=== PATIENT | male | born 1940 | race African-American/Black ===

== ENCOUNTER 2016-06-03 22:49 | Emergency (ER) | payer MEDICARE, OTHER ==
[2016-06-04] MEDS ORDERED: IBUPROFEN 600 MG TAB As Ordered ONE (00:42)
[2016-06-04] MEDS ORDERED: AUGMENTIN 875 MG TAB As Ordered ONE (00:42)
--- NOTE | 2016-06-04 00:47 | EDDOCDS ---
Nurse's Notes [facility] Name: Fernando Live Age: 75 yrs Sex: Male : 1940 Arrival Date: 06/03/2016 Time: 22:49 Bed Triage 2 Private MD: [facility] Diagnosis: Acute sinusitis Presentation: 06/03 22:52 Presenting complaint: Patient states: sore throat, sinus pain and headache for 3 days. rs3 Adult Sepsis Screening: The patient does not have new or worsening altered mentation. Patient's respiratory rate is less than 22. Systolic blood pressure is greater than 100. Patient has a qSOFA score of 0- Negative Sepsis Screen. Suicide/Homicide risk assessment- the patient denies having any suicidal and/or homicidal ideations and does not present with any other emotional, behavioral or mental health complaints. Status: retired. Transition of care: patient was not received from another setting of care. 22:52 Acuity: DMITRY Level 4 rs3 22:52 Method Of Arrival: Walkin/Carried/Asstd rs3 Triage Assessment: 22:54 General: Appears in no apparent distress. Pain: Location: forehead, right cheek and rs3 left cheek. Historical: - Allergies: no known allergies; - Home Meds: 1. Vitamin B-12 1,000 mcg Oral lozg daily 2. Fish Oil 1,000 mg Oral cap daily 3. aspirin 81 mg Oral tab 1 tab once daily 4. fluticasone 50 mcg/actuation nasal spsn 1 spray once daily - PMHx: none; - PSHx: Prostatectomy; - Social history: Smoking status: Patient states former smoker of tobacco. No barriers to communication noted, The patient speaks fluent Gabonese. - Family history: No immediate family members are acutely ill. - : The pt / caregiver states he / she is not on anticoagulants. Home medication list is obtained from the patient. - Exposure Risk Screening:: None identified. Screenin/02 00:44 Screening information is obtained from the patient. Fall risk: No risks identified. kmg1 Assistance ADL's: requires no assistance with activities of daily living. Abuse/DV Screen: The patient / caregiver reports he/she is: not in a situation that causes fear, pain or injury. Nutritional screening: No deficits noted. Advance Directives: There is no active DNR order. home support is adequate. Assessment: 00:44 General: Appears in no apparent distress, comfortable, Behavior is appropriate for age, kmg1 cooperative, pleasant. Pain: Location: forehead Pain currently is 6 out of 10 on a pain scale. Quality of pain is described as aching. Neurological: Level of Consciousness is awake, alert. Respiratory: Airway is patent Respiratory effort is even, unlabored, Respiratory pattern is regular, symmetrical. Vital Signs: 06/03 22:50 BP 184 / 80; Pulse 80; Resp 18; Temp 97.7; Pulse Ox 99% ; Weight 77.11 kg; Height 67 elp in. (170.18 cm); Pain 6/10; 06/04 00:21 BP 150 / 86; cjh 06/03 22:50 Body Mass Index 26.63 (77.11 kg, 170.18 cm) elp Vitals: 06/03 22:50 Log In Time: June 03, 2016 at 22:48. elp ED Course: 22:49 Patient visited by Mariluz Dickens PCA. elp 22:49 Patient moved to Waiting elp 22:50 [facility] is Private Physician. elp 22:50 Patient visited by Mariluz Dickens PCA. elp 22:50 Patient moved to Pre RCE elp 22:52 Triage Initiated rs3 23:55 Patient moved to Triage 2 kmg1 06/04 00:25 [facility] ck7 00:25 Darryn Lynn DO is Attending Physician. ck7 00:25 Patient visited by Jonah Hernandez RPA-C. ck7 00:30 [facility] is Referral Physician. ck7 00:44 The patient / caregiver is instructed regarding the plan of care and ED course. kmg1 00:44 No IV's were initiated during this patient's visit. No procedures done that require kmg1 assistance. Order Results: There are currently no results for this order. Outcome: 00:30 Discharge ordered by Provider. ck7 00:44 Discharge Assessment: Patient awake, alert and oriented x 3. No cognitive and/or kmg1 functional deficits noted. Patient verbalized understanding of disposition instructions. Patient awake and alert. patient administered narcotics - no. The following High Risk Discharge criteria are identified: None. Condition: stable. Discharge instructions given to patient, Instructed on discharge instructions, follow up and referral plans. medication usage, Demonstrated understanding of instructions, medications, Pt was receptive of discharge instructions/ teaching. Prescriptions given X 2. No special radiology studies were completed. Property sent home with patient. 00:46 Patient left the ED. kmg1 Signatures: Lanny Sánchez, RN RN kmg1 Jaja SternRN RN rs3 Magali DesouzaRN RN [facility] Jonah Hernandez, RPA-C RPA-Cck7 Mariluz Dickens, SAM OXYGRAPH OPERATOR elp MTDD
--- NOTE | 2016-06-04 00:47 | EDDOCDS ---
Physician Documentation [facility] Name: Fernando Live Age: 75 yrs Sex: Male : 1940 Arrival Date: 06/03/2016 Time: 22:49 Bed Triage 2 Private MD: [facility] Disposition: 06/04/16 00:30 Discharged to Home/Self Care. Impression: Acute sinusitis. - Condition is Stable. - Discharge Instructions: Sinusitis, Adult. - Prescriptions for Augmentin 875- 125 mg Oral Tablet - take 1 tablet by ORAL route every 12 hours for 10 days; 20 tablet. Ibuprofen 600 mg Oral Tablet - take 1 tablet by ORAL route every 6 hours As needed take with food; 30 tablet. - Medication Reconciliation, Local Pharmacy Hours form. - Follow up: [facility]; When: 2 - 3 days; Reason: Recheck today's complaints, Continuance of care. - Problem is new. - Symptoms have improved. Historical: - Allergies: no known allergies; - Home Meds: 1. Vitamin B-12 1,000 mcg Oral lozg daily 2. Fish Oil 1,000 mg Oral cap daily 3. aspirin 81 mg Oral tab 1 tab once daily 4. fluticasone 50 mcg/actuation nasal spsn 1 spray once daily - PMHx: none; - PSHx: Prostatectomy; - Social history: Smoking status: Patient states former smoker of tobacco. No barriers to communication noted, The patient speaks fluent Kiswahili. - Family history: No immediate family members are acutely ill. - : The pt / caregiver states he / she is not on anticoagulants. Home medication list is obtained from the patient. - Exposure Risk Screening:: None identified. Vital Signs: 06/03 22:50 BP 184 / 80; Pulse 80; Resp 18; Temp 97.7; Pulse Ox 99% ; Weight 77.11 kg / 170 lbs; elp Height 67 in. (170.18 cm); Pain 6/10; 06/04 00:21 BP 150 / 86; cjh 06/03 22:50 Body Mass Index 26.63 (77.11 kg, 170.18 cm) elp MDM: 00:15 Recheck B/P ordered. ck7 00:29 Ibuprofen 600 mg PO once ordered. ck7 00:29 Amoxicillin-Clavulanate 875 mg 1 tabs PO once ordered. ck7 Signatures: Lanny Sánchez, RN RN kmg1 Jaja Stern RN RN rs3 Jonah Hernandez, [place] RPA-Cck7 MTDD
--- NOTE | 2016-06-06 01:47 | EDDOCDS ---
Nurse's Notes [facility] Name: Fernando Live Age: 75 yrs Sex: Male : 1940 Arrival Date: 06/03/2016 Time: 22:49 Bed Triage 2 Private MD: [facility] Diagnosis: Acute sinusitis Presentation: 06/03 22:52 Presenting complaint: Patient states: sore throat, sinus pain and headache for 3 days. rs3 Adult Sepsis Screening: The patient does not have new or worsening altered mentation. Patient's respiratory rate is less than 22. Systolic blood pressure is greater than 100. Patient has a qSOFA score of 0- Negative Sepsis Screen. Suicide/Homicide risk assessment- the patient denies having any suicidal and/or homicidal ideations and does not present with any other emotional, behavioral or mental health complaints. Status: retired. Transition of care: patient was not received from another setting of care. 22:52 Acuity: DMITRY Level 4 rs3 22:52 Method Of Arrival: Walkin/Carried/Asstd rs3 Triage Assessment: 22:54 General: Appears in no apparent distress. Pain: Location: forehead, right cheek and rs3 left cheek. Historical: - Allergies: no known allergies; - Home Meds: 1. Vitamin B-12 1,000 mcg Oral lozg daily 2. Fish Oil 1,000 mg Oral cap daily 3. aspirin 81 mg Oral tab 1 tab once daily 4. fluticasone 50 mcg/actuation nasal spsn 1 spray once daily - PMHx: none; - PSHx: Prostatectomy; - Social history: Smoking status: Patient states former smoker of tobacco. No barriers to communication noted, The patient speaks fluent Wallisian. - Family history: No immediate family members are acutely ill. - : The pt / caregiver states he / she is not on anticoagulants. Home medication list is obtained from the patient. - Exposure Risk Screening:: None identified. Screenin/02 00:44 Screening information is obtained from the patient. Fall risk: No risks identified. kmg1 Assistance ADL's: requires no assistance with activities of daily living. Abuse/DV Screen: The patient / caregiver reports he/she is: not in a situation that causes fear, pain or injury. Nutritional screening: No deficits noted. Advance Directives: There is no active DNR order. home support is adequate. Assessment: 00:44 General: Appears in no apparent distress, comfortable, Behavior is appropriate for age, kmg1 cooperative, pleasant. Pain: Location: forehead Pain currently is 6 out of 10 on a pain scale. Quality of pain is described as aching. Neurological: Level of Consciousness is awake, alert. Respiratory: Airway is patent Respiratory effort is even, unlabored, Respiratory pattern is regular, symmetrical. Vital Signs: 06/03 22:50 BP 184 / 80; Pulse 80; Resp 18; Temp 97.7; Pulse Ox 99% ; Weight 77.11 kg; Height 67 elp in. (170.18 cm); Pain 6/10; 06/04 00:21 BP 150 / 86; cjh 06/03 22:50 Body Mass Index 26.63 (77.11 kg, 170.18 cm) elp Vitals: 06/03 22:50 Log In Time: June 03, 2016 at 22:48. elp ED Course: 22:49 Patient visited by Mariluz Dickens PCA. elp 22:49 Patient moved to Waiting elp 22:50 [facility] is Private Physician. elp 22:50 Patient visited by Mariluz Dickens PCA. elp 22:50 Patient moved to Pre RCE elp 22:52 Triage Initiated rs3 23:55 Patient moved to Triage 2 kmg1 06/04 00:25 [facility] ck7 00:25 Darryn Lynn DO is Attending Physician. ck7 00:25 Patient visited by Jonah Hernandez RPA-C. ck7 00:30 [facility] is Referral Physician. ck7 00:44 The patient / caregiver is instructed regarding the plan of care and ED course. kmg1 00:44 No IV's were initiated during this patient's visit. No procedures done that require [facility] assistance. 00:50 [place] Payment Agreement was scanned into [employer] and attached to record. lja 05:01 T-Sheet-- Draft Copy was scanned into [employer] and attached to record. hs2 Order Results: There are currently no results for this order. Outcome: 00:30 Discharge ordered by Provider. ck7 00:44 Discharge Assessment: Patient awake, alert and oriented x 3. No cognitive and/or kmg1 functional deficits noted. Patient verbalized understanding of disposition instructions. Patient awake and alert. patient administered narcotics - no. The following High Risk Discharge criteria are identified: None. Condition: stable. Discharge instructions given to patient, Instructed on discharge instructions, follow up and referral plans. medication usage, Demonstrated understanding of instructions, medications, Pt was receptive of discharge instructions/ teaching. Prescriptions given X 2. No special radiology studies were completed. Property sent home with patient. 00:46 Patient left the ED. [facility] Signatures: Lanny Sánchez, RN RN kmg1 Jaja Stern,RN RN rs3 Magali Desouza,RN RN [facility] Jonah Hernandez, RPA-C RPA-Cck7 Mariluz Dickens, CHIEF OF PRODUCTION CHIEF OF PRODUCTION elp Arlene, Laureen Lamar, Reg Reg hs2 Chart Complete MTDCherise
--- NOTE | 2016-06-06 01:47 | EDDOCDS ---
Physician Documentation [facility] Name: Fernando Live Age: 75 yrs Sex: Male : 1940 Arrival Date: 06/03/2016 Time: 22:49 Bed Triage 2 Private MD: [facility] Disposition: 06/04/16 00:30 Discharged to Home/Self Care. Impression: Acute sinusitis. - Condition is Stable. - Discharge Instructions: Sinusitis, Adult. - Prescriptions for Augmentin 875- 125 mg Oral Tablet - take 1 tablet by ORAL route every 12 hours for 10 days; 20 tablet. Ibuprofen 600 mg Oral Tablet - take 1 tablet by ORAL route every 6 hours As needed take with food; 30 tablet. - Medication Reconciliation, Local Pharmacy Hours form. - Follow up: [facility]; When: 2 - 3 days; Reason: Recheck today's complaints, Continuance of care. - Problem is new. - Symptoms have improved. Historical: - Allergies: no known allergies; - Home Meds: 1. Vitamin B-12 1,000 mcg Oral lozg daily 2. Fish Oil 1,000 mg Oral cap daily 3. aspirin 81 mg Oral tab 1 tab once daily 4. fluticasone 50 mcg/actuation nasal spsn 1 spray once daily - PMHx: none; - PSHx: Prostatectomy; - Social history: Smoking status: Patient states former smoker of tobacco. No barriers to communication noted, The patient speaks fluent Setswana. - Family history: No immediate family members are acutely ill. - : The pt / caregiver states he / she is not on anticoagulants. Home medication list is obtained from the patient. - Exposure Risk Screening:: None identified. Vital Signs: 06/03 22:50 BP 184 / 80; Pulse 80; Resp 18; Temp 97.7; Pulse Ox 99% ; Weight 77.11 kg / 170 lbs; elp Height 67 in. (170.18 cm); Pain 6/10; 06/04 00:21 BP 150 / 86; cjh 06/03 22:50 Body Mass Index 26.63 (77.11 kg, 170.18 cm) elp MDM: 00:15 Recheck B/P ordered. ck7 00:29 Ibuprofen 600 mg PO once ordered. ck7 00:29 Amoxicillin-Clavulanate 875 mg 1 tabs PO once ordered. ck7 00:50 [place] Payment Agreement was scanned into [employer] and attached to record. 00:50 Financial registration complete. 05:01 T-Sheet-- Draft Copy was scanned into [employer] and attached to record. hs2 Signatures: Lanny Sánchez, RN RN kmg1 Jaja SternRN RN rs3 Jonah Hernandez, RPA-C RPA-Cck7 Arel, Laureen Lamar, Reg Reg hs2 The chart was reviewed and I authenticate all verbal orders and agree with the evaluation and treatment provided.Attachments: 00:50 [place] Payment Agreement 05:01 T-Sheet-- Draft Copy hs2 Chart Complete MTDD
--- NOTE | 2016-06-06 01:47 | EDDOCDS ---
Physician Documentation [facility] Name: Fernando Live Age: 75 yrs Sex: Male : 1940 Arrival Date: 06/03/2016 Time: 22:49 Bed Triage 2 Private MD: [facility] Disposition: 06/04/16 00:30 Discharged to Home/Self Care. Impression: Acute sinusitis. - Condition is Stable. - Discharge Instructions: Sinusitis, Adult. - Prescriptions for Augmentin 875- 125 mg Oral Tablet - take 1 tablet by ORAL route every 12 hours for 10 days; 20 tablet. Ibuprofen 600 mg Oral Tablet - take 1 tablet by ORAL route every 6 hours As needed take with food; 30 tablet. - Medication Reconciliation, Local Pharmacy Hours form. - Follow up: [facility]; When: 2 - 3 days; Reason: Recheck today's complaints, Continuance of care. - Problem is new. - Symptoms have improved. Historical: - Allergies: no known allergies; - Home Meds: 1. Vitamin B-12 1,000 mcg Oral lozg daily 2. Fish Oil 1,000 mg Oral cap daily 3. aspirin 81 mg Oral tab 1 tab once daily 4. fluticasone 50 mcg/actuation nasal spsn 1 spray once daily - PMHx: none; - PSHx: Prostatectomy; - Social history: Smoking status: Patient states former smoker of tobacco. No barriers to communication noted, The patient speaks fluent Persian. - Family history: No immediate family members are acutely ill. - : The pt / caregiver states he / she is not on anticoagulants. Home medication list is obtained from the patient. - Exposure Risk Screening:: None identified. Vital Signs: 06/03 22:50 BP 184 / 80; Pulse 80; Resp 18; Temp 97.7; Pulse Ox 99% ; Weight 77.11 kg / 170 lbs; elp Height 67 in. (170.18 cm); Pain 6/10; 06/04 00:21 BP 150 / 86; cjh 06/03 22:50 Body Mass Index 26.63 (77.11 kg, 170.18 cm) elp MDM: 00:15 Recheck B/P ordered. ck7 00:29 Ibuprofen 600 mg PO once ordered. ck7 00:29 Amoxicillin-Clavulanate 875 mg 1 tabs PO once ordered. ck7 00:50 [place] Payment Agreement was scanned into [employer] and attached to record. 00:50 Financial registration complete. 05:01 T-Sheet-- Draft Copy was scanned into [employer] and attached to record. hs2 Signatures: Lanny Sánchez, RN RN kmg1 Jaja SternRN RN rs3 Jonah Hernandez, RPA-C RPA-Cck7 Arel, Laureen Lamar, Reg Reg hs2 The chart was reviewed and I authenticate all verbal orders and agree with the evaluation and treatment provided.Attachments: 00:50 [place] Payment Agreement 05:01 T-Sheet-- Draft Copy hs2 Chart Complete MTDD
== END 2016-06-04 00:46 | disposition home or self-care (01) ==
LOC: M ED 22:49
DX: J01.90 Acute sinusitis, unspecified (principal); Z87.891 Personal history of nicotine dependence; Z79.82 Long term (current) use of aspirin; Z79.899 Other long term (current) drug therapy

== ENCOUNTER → 2020-01-31 | Outpatient (CLI) | payer MEDICARE, OTHER ==
--- NOTE | 2020-02-06 08:42 | SLEEPCENT ---
DATE: 01/31/2020 ORDERED BY: Tito Rankin Nocturnal polysomnography was performed for evaluation of sleep physiology in this patient with extensive somnolence. Six hours and 25 minutes of date were reviewed. There were 211 minutes of sleep identified. Sleep latency was short at 14 minutes. REM sleep was delayed at 198 minutes. Sleep architecture showed poor progression and fragmentation. Overall sleep efficiency was 55.1%. The electrocardiogram showed a sinus rhythm with an average heart rate of 60 beats per minute. Rate ranged 50-75. EEG showed fairly normal wave forms for wake and sleep with some alpha intrusion into the non-REM stages. There were 91 respiratory events identified of 10 seconds in duration or greater for an apnea-hypopnea index of 25.9. The events were primarily obstructive. Eighteen mixed and central apneas were seen. The events were more frequent but not exclusive to the supine posture and arousals from respiratory events occurred 13.4 times per hour. Oxygen desaturations were seen below 90%. Some limb activity was noted but arousals from limb events were few. IMPRESSION: Obstructive sleep apnea syndrome (G47.33), apnea-hypopnea index 25.9. RECOMMENDATION: The patient should be encouraged to return to the [facility] for pressure therapy. In the interim alcohol and sedative avoidance should be practiced and caution exercised during the operation of motor vehicles. SAMANTAD
== END ==
LOC: M SLEEP 20:00
PROVIDERS: ATTEND Internal Medicine
DX: G47.33 Obstructive sleep apnea (adult) (pediatric) (principal)

== ENCOUNTER 2020-06-27 15:49 | Emergency (ER) | payer OTHER, MEDICARE ==
[~2020-06-27] VITALS: Ht 170.2 cm; Wt 85.9 kg
[2020-06-27 15:50] VITALS: BP 181/86
[2020-06-27] MEDS ORDERED: CALC1TAB42 PO (16:05)
[2020-06-27] MEDS ORDERED: FISH1000 PO (16:05)
[2020-06-27] MEDS ORDERED: ROSU40TA4 (16:05)
[2020-06-27] MEDS ORDERED: FLUTISP (16:05)
[2020-06-27] MEDS ORDERED: ASPI1CHW3 PO (16:05)
[2020-06-27] MEDS ORDERED: CVS5000S2 PO (16:05)
[2020-06-27] MEDS ORDERED: CETI-24 (16:05)
== END 2020-06-27 19:46 | disposition left against medical advice (07) ==
LOC: M ED 15:49
DX: H61.21 Impacted cerumen, right ear (principal); I10 Essential (primary) hypertension; E78.5 Hyperlipidemia, unspecified

== ENCOUNTER → 2022-06-19 | Outpatient (REF) | payer MEDICARE, OTHER ==
[~2022-06-19] MED LIST: ASPI1CHW3 PO; CALC1TAB42 PO; CETI-24; CVS5000S2 PO; FISH1000 PO; FLUTISP; ROSU40TA4
== END ==
LOC: M LAB REF 17:09
PROVIDERS: ATTEND Internal Medicine Endocrinology, Diabetes & Metabolism
DX: E04.1 Nontoxic single thyroid nodule (principal)

== ENCOUNTER → 2023-05-16 | Outpatient (CLI) | payer OTHER, MEDICARE ==
[~2023-05-16] MED LIST changes: +ACET-683 PO; +ASPI-655 PO; -ASPI1CHW3 PO; +BRIM0.2S13 OP; +CALCTAB89 PO; +CODCAP6 PO; +DORZ1DRO6 OP; +EYEDRO5 OP; +EZET10TA21 PO; +OMEG10002 PO; +OSTE5TAB PO; +RAMI1CAP24 PO; +SALI0.6530 NARES; +XALA0.007 OP
== END ==
LOC: M RAD 10:18
PROVIDERS: ATTEND Internal Medicine Hematology & Oncology
DX: D72.819 Decreased white blood cell count, unspecified (principal)